=== PATIENT | male | born 1990 | race African-American/Black ===

== ENCOUNTER 2025-03-13 14:05 | Emergency (ER) | payer OTHER ==
[~2025-03-13] VITALS: Ht 177.8 cm; Wt 112.0 kg
[2025-03-13 14:14] VITALS: O2SAT 98
[2025-03-13] MEDS ORDERED: IBUPROFEN 800MG TABLET PO ONE (16:00)
[2025-03-13] MEDS: ACETAMINOPHEN 500MG TABLET PO ONE (16:20)
[2025-03-13] MEDS: IBUPROFEN 800MG TABLET PO SCH (16:21)
[2025-03-13] MEDS ORDERED: IBUP-2030 MT (17:08)
[2025-03-13 18:33] VITALS: BP 123/73; PULSE 70; RESP 18; TEMP 36.6; O2SAT 98
== END 2025-03-13 18:37 | disposition home or self-care (01) ==
LOC: ER 14:05
DX: S00.10XA Contusion of unspecified eyelid and periocular area, initial encounter (principal); W50.1XXA Accidental kick by another person, initial encounter; Y93.89 Activity, other specified; Y92.89 Other specified places as the place of occurrence of the external cause; Y99.8 Other external cause status
CPT/HCPCS: 99285; A4606